=== PATIENT | female | born 1955 | race Caucasian/White ===

== ENCOUNTER → 2019-10-17 | Outpatient (CLI) | payer MEDICARE, OTHER ==
--- NOTE | 2019-10-17 17:26 | RAD ---
2 view study of the right femur Clinical indications: Follow-up of right femur fracture after surgery. COMPARISON: None currently available. FINDINGS: A long metallic intramedullary lilian is seen extending throughout the length of the right femur. There is a comminuted fracture of the distal right femoral metadiaphysis. There is medial displacement of the distal segment of the shaft measuring 13 mm. No healing callus formation is evident. No lytic process is seen. IMPRESSION: ORIF of distal right femur fracture. No healing reaction is seen. Electronically signed by: Chris Mackenzie MD (10/17/2019 5:23 PM) [id number]
== END | disposition home or self-care (01) ==
LOC: RAD 09:46
PROVIDERS: ATTEND Physician Assistant
DX: S72.491A Other fracture of lower end of right femur, initial encounter for closed fracture (principal); Z98.890 Other specified postprocedural states; X58.XXXA Exposure to other specified factors, initial encounter; Y93.89 Activity, other specified; Y92.89 Other specified places as the place of occurrence of the external cause; Y99.8 Other external cause status
CPT/HCPCS: 73552

== ENCOUNTER → 2019-11-28 | Outpatient (CLI) | payer MEDICARE, OTHER ==
--- NOTE | 2019-11-28 17:22 | RAD ---
RIGHT FEMUR XRAY History: Right femur fracture, not healing Comparison: October 17, 2019 Findings: 4 views of the right femur are submitted. There is again intramedullary lilian of the right femur, distally secured by 3 screws and also single screw proximally. There is again lucency about the distal aspect of the intramedullary lilian and similar identifiable residual fracture plane of the distal femoral diametaphysis. Radiographic appearance is unchanged. There is again severe narrowing of patellofemoral articulation. Impression: 1. There is unchanged appearance of distal right femur fracture with abnormal lucency about the intramedullary lilian and residual identifiable fracture plane, no evidence of interval healing. Electronically signed by: Jhoan Campa MD (11/28/2019 5:19 PM) [id number]
== END | disposition home or self-care (01) ==
LOC: DXRAD 09:50
PROVIDERS: ATTEND Physician Assistant
DX: S72.401A Unspecified fracture of lower end of right femur, initial encounter for closed fracture (principal); Z98.890 Other specified postprocedural states; X58.XXXA Exposure to other specified factors, initial encounter; Y93.89 Activity, other specified; Y92.89 Other specified places as the place of occurrence of the external cause; Y99.8 Other external cause status
CPT/HCPCS: 73552

== ENCOUNTER → 2020-01-16 | Outpatient (CLI) | payer MEDICARE, OTHER ==
--- NOTE | 2020-01-16 12:42 | RAD ---
Right femur 2 views INDICATION: Femur fracture, Surgery June 2019 COMPARISON: Right femur x-rays 11/28/2019 FINDINGS: Intramedullary lilian and screw fixation of a comminuted distal right femoral fracture is redemonstrated showing some evidence of osseous bridging but minimal interval callus formation with residual lucency around the distal aspect of the intramedullary lilian and no significant interval callus formation across the lateral aspect of the fracture line. No interval migration of the screws and no new fracture. The fracture lines are still visible with dense marginal sclerosis on the medial aspect. IMPRESSION: Delayed union of the distal right femoral comminuted fracture with lucency around the intramedullary lilian distally. Cannot exclude hardware loosening. Electronically signed by: Crispin Bell MD (01/16/2020 12:39 PM) [id number]
== END | disposition home or self-care (01) ==
LOC: DXRAD 09:43
PROVIDERS: ATTEND Physician Assistant
DX: S72.91XK Unspecified fracture of right femur, subsequent encounter for closed fracture with nonunion (principal); X58.XXXD Exposure to other specified factors, subsequent encounter
CPT/HCPCS: 73552

== ENCOUNTER → 2020-04-01 | Outpatient (CLI) | payer MEDICARE, OTHER ==
--- NOTE | 2020-04-01 16:45 | RAD ---
EXAMINATION: XR FEMUR_RIGHT CLINICAL HISTORY: Follow-up right femur fracture TECHNIQUE: XR FEMUR_RIGHT Number of Images/Views: 01/16/2020, 08/16/2019 COMPARISON: None FINDINGS: Intact retrograde right femoral intramedullary lilian and proximal and distal locking screws traversing the comminuted supracondylar distal femur fracture. Essentially unchanged thin lucency surrounding th e most proximal and most distal of the 3 distal locking screws, suspicious for loosening. Continued interval fracture healing with slightly less prominent radiolucent fracture planes. Limited evaluation of the hip and knee joints unchanged. IMPRESSION: Healing comminuted supracondylar right femur fracture status post ORIF with concern for loosening at 2 of the 3 distal locking screws as described. Degree of suspected loosening essentially unchanged fr om prior study. Electronically signed by: Trevor Lopez DO (04/01/2020 4:43 PM) [id number]
== END ==
LOC: DXRAD 13:35
PROVIDERS: ATTEND Physician Assistant
DX: S72.91XK Unspecified fracture of right femur, subsequent encounter for closed fracture with nonunion (principal); X58.XXXD Exposure to other specified factors, subsequent encounter; Z96.698 Presence of other orthopedic joint implants
CPT/HCPCS: 73552